=== PATIENT | male | born 1995 | race Two or more races ===

== ENCOUNTER 2018-06-08 02:47 | Emergency (ER) | payer MEDICAID ==
[~2018-06-08] VITALS: Ht 170.2 cm; Wt 68.2 kg
[2018-06-08 03:06] VITALS: BP 142/87
== END 2018-06-08 06:20 | disposition left against medical advice (07) ==
LOC: ER 04:59
DX: Z53.21 Procedure and treatment not carried out due to patient leaving prior to being seen by health care provider (principal)